=== PATIENT | female | born 1990 | race Caucasian/White ===

== ENCOUNTER 2016-10-20 09:36 | Emergency (ER) | payer OTHER ==
[2016-10-20 09:47] VITALS: BP 122/68
--- NOTE | 2016-10-20 09:59 | UC ---
Throat Pain/Nasal Dimas HPI - HPI Summary HPI Summary: compalint of aore throat that started 3 days ago has felt fever and chills for 2 days intermittent headache front of head intermittent nausea denies V/D denies nasal congestion and cough hasn't neede inhaler during this illness taking dayquil and nyquil with some relief of symptoms - History of Current Complaint Chief Complaint: UCGeneralIllness Stated Complaint: SORE THROAT, ACHES Hx Obtained From: Patient Hx Last Menstrual Period: 10/16/16 - Allergies/Home Medications Allergies/Adverse Reactions: Allergies Allergy/AdvReac Type Severity Reaction Status Date / Time No Known Allergies Allergy Verified 10/20/16 09:43 PMH/Surg Hx/FS Hx/Imm Hx Previously Healthy: Yes Endocrine History Of: Denies: Diabetes, Thyroid Disease Cardiovascular History Of: Denies: Cardiac Disorders, Hypertension, Pacemaker/ICD Respiratory History Of: Reports: Asthma Denies: COPD GI/ History Of: Denies: Ulcer, Renal Disease - Surgical History Surgical History: None - Family History Known Family History: Positive: Hypertension - Social History Occupation: Employed Full-time Lives: With Family Alcohol Use: Occasionally Substance Use Type: None Smoking Status (MU): Former Smoker Type: Cigarettes When Did the Patient Quit Smoking/Using Tobacco: 4 1/2 YRS AGO Review of Systems Constitutional: Chills Skin: Negative Eyes: Negative ENT: Sore Throat Respiratory: Negative Cardiovascular: Negative Gastrointestinal: Negative Genitourinary: Negative Motor: Negative Neurovascular: Negative Musculoskeletal: Negative Neurological: Negative Psychological: Negative All Other Systems Reviewed And Are Negative: Yes Physical Exam Triage Information Reviewed: Yes Appearance: No Pain Distress, Well-Nourished Vital Signs: Initial Vital Signs Temp 99.1 F 10/20/16 09:44 Pulse 75 10/20/16 09:44 Resp 18 10/20/16 09:44 BP 122/68 10/20/16 09:44 Pulse Ox 100 10/20/16 09:44 Vital Signs Reviewed: Yes Eyes: Positive: Conjunctiva Clear ENT: Positive: Pharyngeal erythema, TMs normal. Negative: Nasal congestion, TM red, Tonsillar swelling, Tonsillar exudate Neck: Positive: No Lymphadenopathy Respiratory: Positive: Lungs clear, Normal breath sounds, No respiratory distress Cardiovascular: Positive: RRR, No Murmur, Pulses Normal Abdomen Description: Positive: Nontender, Soft Bowel Sounds: Positive: Present Musculoskeletal: Positive: No Edema Neurological: Positive: Alert Psychological Exam: Normal Skin Exam: Normal Throat Pain/Nasal Course/Dx - Course Course Of Treatment: exam completed. neagitve strep. supportive treatment only - Differential Dx/Diagnosis Differential Diagnosis/HQI/PQRI: Pharyngitis, URI Provider Diagnoses: pharyngitis Discharge - Discharge Plan Condition: Stable Disposition: HOME Patient Education Materials: Pharyngitis (ED) Referrals: Yashira Yeung MD [Primary Care Provider] - Additional Instructions: Increase fluids and rest Take acetaminophen for fever or pain Please review your discharge instructions. If your symptoms do not improve please call your primary care provider or return to urgent care.
== END 2016-10-20 10:30 | disposition home or self-care (01) ==
LOC: UCEAST 09:36
DX: J02.9 Acute pharyngitis, unspecified (principal); Z87.891 Personal history of nicotine dependence; Z87.09 Personal history of other diseases of the respiratory system
CPT/HCPCS: 87651; 99211; G0463

== ENCOUNTER → 2017-06-30 05:50 | Day surgery (SDC) | payer BC, OTHER ==
--- NOTE | 2017-06-22 22:26 | HP ---
PREOPERATIVE HISTORY AND PHYSICAL: DATE OF SURGERY: 06/30/17 DATE OF OFFICE VISIT: 06/22/17 ATTENDING SURGEON: Eric Staton MD* (dictated by JUAN C Vallejo). PROCEDURES: Left hip arthroscopic labral repair, osteoplasty. CHIEF COMPLAINT: Left hip pain. HISTORY OF PRESENT ILLNESS: Donna is a 26-year-old female who presents to the clinic for ongoing left hip pain due to a labral tear. She has failed conservative measures to include an intraarticular injection and has therefore agreed to undergo left hip arthroscopic labral repair and osteoplasty with Dr. Staton on 06/30/17. PAST MEDICAL HISTORY: Asthma and migraine. PAST SURGICAL HISTORY: Denies prior surgeries. MEDICATIONS: 1. Fish oil 1000 mg 1 by mouth every day. 2. Excedrin Migraine 250/250/65 mg take as needed for headache. ALLERGIES: No known drug allergies. FAMILY HISTORY: Denies pertinent family history. SOCIAL HISTORY: She works as a construction equipment mechanic. She denies tobacco use. She reports occasional alcohol use. She denies illicit drug use. REVIEW OF SYSTEMS: A 14-point review of systems was reviewed with the patient. Positive for current complaint, otherwise negative. Denies fevers, chills. Denies chest pain or shortness of breath. Denies history of bleeding disorder. Denies history of DVT or PE. PHYSICAL EXAMINATION GENERAL: Well-developed, well-nourished 26-year-old female, in no acute distress. Alert and oriented x3. Appropriate mood and affect. VITALS: Height 60, weight 126, blood pressure 116/70, respiratory rate 18, temperature 97.9, BMI 24.6. HEENT: Normocephalic and atraumatic. PERRLA. Throat clear. NECK: Supple. PULMONARY: Lungs are clear to auscultation bilaterally. No wheezing, rhonchi, or rales. CARDIO: Regular rate and rhythm. S1 and S2. No murmurs, gallops, rubs. No edema. ABDOMEN: Positive bowel sounds. Soft and nontender. NEURO: Alert and oriented x3. Cranial nerves grossly intact. Sensation is intact to light touch. MUSCULOSKELETAL: Left lower extremity: Skin is intact. No warmth or erythema. Nontender to palpation. Flexion to 130 degrees with some discomfort. Positive FADIR. Negative DEMETRIUS. Internal rotation to 25 degrees, external rotation to 40. No pain on passive abduction. No pain with logroll. +2 posterior tibial pulse. Sensation is intact to light touch distally. STUDIES: Left hip arthrogram revealed labral tear, small cam deformity, small pincer deformity. IMPRESSION: Left hip labral tear. PLAN: The patient is scheduled to undergo a left hip arthroscopic labral repair and osteoplasty with Dr. Staton on 06/30/17. She will return to the office in 10 to 14 days postop for followup and suture removal. Percocet and OxyContin will be used for postop pain management. Ambien for sleep and naproxen to prevent heterotopic ossification. The patient was a given script for physical therapy and was instructed to be in physical therapy the day after surgery. JUAN C VALLEJO [id number]/[facility] #: [id number] NEGAR
[~2017-06-30 05:50] MED LIST: Buffered Lidocaine 0.9% SYRIN* 5 ML/SYR SYRINGE INTRADERM ONE; Buffered Lidocaine 0.9% SYRIN* 5 ML/SYR SYRINGE ONE; Bupivacaine 0.25% SDV* 30 ML ONE; Cisatracurium* 2 MG/ML MDV 5 ML ONE; Dexamethasone IV* 4 MG/ML 1 ML (4 MG) ONE; DiMENhydriNATE IV* 50 MG/ML VIAL IV PUSH PRN; EPHEDrine (Pressors)* 50 MG/ML VIAL ONE; Famotidine IV* 10 MG/ML 2 ML (20 mg) IV ONE; Famotidine IV* 10 MG/ML 2 ML (20 mg) ONE; HYDROmorphone INJ* 1 MG/ML CARPUJECT SYRINGE IV PRN; HYDROmorphone INJ* 1 MG/ML CARPUJECT SYRINGE ONE; KETAMINE HCL* 50 MG/ML 10 ML VIAL ONE; Ketorolac INJ* 30 MG/ML 1 ML VIAL ONE; Lidocaine 2% PF * 5 ML VIAL ONE; Metoclopramide TAB* 10 MG ONE; Metoclopramide TAB* 10 MG PO ONE; Midazolam* 1 MG/ML 5 ML VIAL (5 MG) ONE; Ondansetron INJ* 2 MG/ML VIAL IV PRN; Ondansetron INJ* 2 MG/ML VIAL ONE; Propofol* 10 MG/ML 20 ML BTL IV PUSH ONE; Scopolamine 1.5 mg* PATCH TRANSDERM PRN; ceFAZolin 2 GM PREMIX (*) 50 ML IVPB ONE; fentaNYL* 50 MCG/ML 2 ML VIAL (100 MCG VIAL) IV PRN; fentaNYL* 50 MCG/ML 2 ML VIAL (100 MCG VIAL) ONE; oxyCODONE/Acetamin 5/325 MG* TAB ONE
--- NOTE | 2017-06-30 10:44 | RAD ---
INDICATION: Fluoroscopy was provided for left hip arthroscopy COMPARISONS: None relevant TECHNIQUE: Fluoroscopy was provided for left hip arthroscopy. Total fluoroscopy time is: 80.2 seconds FINDINGS: Spot images demonstrate a small scope overlying the left hip. IMPRESSION: FLUOROSCOPY WAS PROVIDED FOR LEFT HIP ARTHROSCOPY CPT II Codes: 6045F
[2017-06-30 11:49] VITALS: BP 114/68
--- NOTE | 2017-06-30 17:46 | OP ---
DATE OF OPERATION: 06/30/17 [facility] DATE OF : [birth year] SURGEON: Eric Staton MD GENERAL DENTIST/OWNER: JUAN C Smith. An high school assistant football coach was needed for the entirety of the case to help with positioning, retraction, and utilized throughout all portions of the case. ANESTHESIOLOGIST: Rod Jose MD ANESTHESIA: General. PRE-OP DIAGNOSIS: Left hip labral tear with mixed cam and pincer morphology. POST-OP DIAGNOSIS: Left hip labral tear with mixed cam and pincer morphology. OPERATIVE PROCEDURE: Left hip arthroscopy with labral repair and cam osteoplasty. INDICATIONS: Donna Dominguez is a 26-year-old female with 2-1/2-year history of left hip pain. She was very active and she has two areas of pain, which is one in the piriformis and one is along the hip itself. She has mixed cam and pincer morphology with labral tear. She has failed conservative management. She has elected to proceed with operative treatment. She did respond to an injection, although it did not take away all of her pain and she has some piriformis-type symptoms. Risks included but are not limited to bleeding, infection, damage to nerves, vessels, surrounding structures, wound nonhealing, persistent pain, need for further surgery, scarring, stiffness, incomplete relief of symptoms, heterotopic ossification, traction injuries, risk of DVT, risk of anesthesia. She has elected to proceed. COMPLICATIONS: None. ESTIMATED BLOOD LOSS: Minimal. IMPLANTS USED: Two Mclaughlin and Nephew Q-FIX anchors. OPERATIVE FINDINGS: Traction provided good access to the hip joint without evidence of hyperlaxity. The arthroscopic exam showed a large labral tear from the 10 o'clock to 2 o'clock position with some subluxation to the labrum and there was a wave sign. The labrum was very good quality. Unstable labral tear was able to be repaired. The wave sign involving the cartilage delamination at the division of labral tear had only minimal amount of damage to the acetabular cartilage; otherwise, the cartilage of the femoral head was intact as well as the acetabulum. There was evidence of capsular irritation and thickening. DESCRIPTION OF PROCEDURE: The patient was greeted in the preoperative area by the attending surgeon. Correct extremity was marked and consent was confirmed. The patient was then brought back to the operating suite. She was placed in supine position on the operating table. She then underwent general anesthesia and endotracheal intubation after which she was positioned appropriately in the Mclaughlin and Nephew hip distraction system with a well-padded perineal post. Both the operative and nonoperative extremities were placed in well-padded boots. Traction was placed first on the nonoperative extremity and then at the operative extremity in the dynamic leg nuñez to keep traction along the dome of the pelvis and keep the extremity balanced. The left arm was draped over the chest and a lead was placed around the patient to prevent exposure to radiation. The C-arm was confirmed. The operative leg was placed in slight gentle flexion, internal rotation with adduction of the leg to bring the femoral neck parallel to the floor. At this point, a miniature surgical pause was done indicating side, site, and procedure, then gross traction was applied to the operative extremity. Under sterile condition, an 18-gauge spinal needle was used to access the joint to break the acetabular seal. Once this was confirmed and there was an air arthrogram, fine traction was applied to the joint and it was distracted to about 1.5 cm. This was visualized and confirmed using large C-arm fluoroscopy and the traction was then released. The hip was then prepped and draped in the usual sterile fashion beginning with chlorhexidine soap, scrub, and alcohol wipe, and a final prep with ChloraPrep. After appropriate surgical pause indicating side, site, procedure, and administration of antibiotics, traction was brought back up to allow for about 1.5 cm of distraction. The anterior peritrochanteric portal was then accessed using a long spinal needle, which was confirmed fluoroscopically. After this was done, a nitinol wire was used to help facilitate a cannula and atraumatic access into the hip. Once the cannula was placed, a 70-degree scope was used to identify and visualize the hip including femoral head, which had no significant arthritic changes as well as the acetabulum. With arthroscopic and fluoroscopic guidance, the second anterolateral portal was made with needle localization in a similar fashion to allow for atraumatic access. The scope was then repositioned in the anterior portal to make sure that there was no penetration from the original portals. The irrigation pump was set at 40 mmHg as to provide constant pressure throughout the entirety of the case. Once the positions were confirmed, a capsulotomy was then done of the capsule using a [place] blade. Posterior compartment synovectomy was carried out using a full radius curved shaver as well as electrocautery device to maintain hemostasis. This eliminates synovial fold and allowed access to the joint capsule. The capsular reflection was then cleared back to the rim of acetabulum to expose the rim for trimming. At this point, it was determined that the labrum was in good condition and was able to be repaired. This was gently released using the [place] blade. This exposed the acetabular rim. The 5.5 round bur was then used to do an osteoplasty to remove the crossover sign that was determined preoperatively. This was based on preoperative template. This also was used to remove some AIIS impingement all the way to the subspine region. The bur was also taken anteriorly to remove the excess pincer deformity more anteriorly. Once this was complete, a Mclaughlin and NephCloudcam Q-Fix guide was then used place an anchor first superolaterally. This was confirmed under fluoroscopic examination to make sure that there was no penetration into the hip and confirmed arthroscopically. The anchor was placed to get excellent purchase and then passed through the labrum in simple fashion. This helped to restore the normal labral mechanics. The second anchor was placed more anteriorly and again passed in a simple fashion. This allowed to restore the labrum back to more normal kinematics. Once the intraarticular joint work was done, the traction was removed and this was confirmed by C-arm as well as arthroscopy with the head was reduced into the joint and there was concentric reduction. Femoral head and neck were then visualized to expose a small cam lesion. Preoperative templating was then used as a guide and femoral neck osteoplasty was carried out using a 5.5 round bur. The resection was carried out from superior lateral to inferior medial and confirmed using the C-arm to make sure elimination of femoral-sided impingement. The femoral head and neck angle was then normalized. Care was taken to prevent iatrogenic injury to the lateral vessels. Dynamic testing was done under direct visualization. C-arm was used to ensure that all bony impingement was removed. The hip was taken through range of motion including extension, flexion, external, and internal rotation as well as neutral rotation. Final dynamic exam was done to make sure the cam lesion had been eliminated. At this point, meticulous hemostasis was obtained. The spinal needle was inserted into the joint under arthroscopic visualization. 3 cc of injectable saline and Toradol were injected into the hip joint. The skin incisions were copiously irrigated and closed in layered fashion with 2-0 Vicryl and 3-0 nylon. Portals were injected with 0.25% Marcaine for postoperative pain control. Sterile dressings were applied along with Cryo/Cuff and thigh-high BEAU stockings in both extremities. She was awoken from anesthesia and transferred to PACU in stable condition. POSTOPERATIVE PLAN: She will be discharged home the same day. She was given prescriptions for Naprosyn 500 mg b.i.d., oxycodone ER 10 mg b.i.d. for 5 days, Percocet as well as Ambien 5 mg p.o. daily for 5 days. DVT prophylaxis was considered, but deferred due to no previous personal or family history. She will wear these stockings for 2 weeks. She will be not allowed to flex her hip past 90 degrees for the first 2 weeks and 50% partial weightbearing using crutches for 2 weeks postop. She will start therapy on postop day #1. We will see her back in 10 to 14 days and she will need x-rays of her hip including a Hirsch lateral at 45 degrees. [id number]/[facility] #: [id number] MTDD
== END | disposition home or self-care (01) ==
LOC: OR 05:50
PROVIDERS: ATTEND Orthopaedic Surgery
DX: S73.192A Other sprain of left hip, initial encounter (principal); M25.852 Other specified joint disorders, left hip; X58.XXXA Exposure to other specified factors, initial encounter; J45.909 Unspecified asthma, uncomplicated; G43.909 Migraine, unspecified, not intractable, without status migrainosus; Z87.891 Personal history of nicotine dependence
CPT/HCPCS: 76000; 81025; A9270-GY; C1713; J0690; J1100; J1170; J1885; J2250; J2405; J2704; J3010

== ENCOUNTER 2017-07-18 16:52 | Emergency (ER) | payer BC ==
[2017-07-18 16:58] VITALS: BP 120/68
[2017-07-18] MEDS ORDERED: Sulfamethox/Trimethoprim DS 800/160* TAB PO ONE (17:10)
--- NOTE | 2017-07-18 17:10 | UC ---
Skin Complaint HPI - HPI Summary HPI Summary: Painful lump on R jaw line. Has been picking at an area occasionally for several days, area has intermittently been "pouring pus". No fever, moderate pain. Had recent L hip surgery [facility]. - History of Current Complaint Chief Complaint: UCGI Time Seen by Provider: 07/18/17 16:58 Stated Complaint: SORE MOUTH Hx Obtained From: Patient Hx Last Menstrual Period: 07/01/17 ?: No Onset/Duration: Gradual Onset, Lasting Days Skin Exposure Onset/Duration: Days Ago Timing: Constant Onset Severity: Mild Current Severity: Moderate Location: Discrete Character: Swelling, Pain, Redness Aggravating Factor(s): Touch Associated Signs & Symptoms: Positive: Drainage - Allergy/Home Medications Allergies/Adverse Reactions: Allergies Allergy/AdvReac Type Severity Reaction Status Date / Time No Known Allergies Allergy Verified 06/30/17 06:08 Home Medications: Home Medications Ifzhkhc-Rwjwcodmmgbym-Lmphdzsw [Excedrin Migraine 250-250-65 mg] 1 tab PO [History] Naproxen [Naprosyn 500 mg] 500 mg PO BID PRN 07/18/17 [History Confirmed ] Review of Systems Constitutional: Negative Skin: Other - swollen, erythematous area with draining center on R jaw line Eyes: Negative ENT: Negative Respiratory: Negative Cardiovascular: Negative Gastrointestinal: Negative Genitourinary: Negative Motor: Negative Neurovascular: Negative Musculoskeletal: Negative Neurological: Negative Psychological: Negative Is Patient Immunocompromised?: No All Other Systems Reviewed And Are Negative: Yes PMH/Surg Hx/FS Hx/Imm Hx Previously Healthy: Yes - Surgical History Surgical History: Yes Surgery Procedure, Year, and Place: lt hip repair - Family History Known Family History: Positive: Hypertension - Social History Lives: With Family Alcohol Use: Occasionally Substance Use Type: None Smoking Status (MU): Former Smoker Type: Cigarettes Amount Used/How Often: 1 PPD X 5 YEARS Have You Smoked in the Last Year: No When Did the Patient Quit Smoking/Using Tobacco: 2011 Physical Exam Triage Information Reviewed: Yes Appearance: Well-Appearing, Pain Distress - mild Vital Signs: Initial Vital Signs Temp 99.8 F 07/18/17 16:55 Pulse 94 07/18/17 16:55 Resp 18 07/18/17 16:55 BP 120/68 07/18/17 16:55 Pulse Ox 100 07/18/17 16:55 Vital Signs Reviewed: Yes Eye Exam: Normal, Other - PERRL Eyes: Positive: Conjunctiva Clear ENT Exam: Normal ENT: Positive: Normal ENT inspection, Hearing grossly normal, Pharynx normal, TMs normal Dental Exam: Normal Neck exam: Normal Respiratory Exam: Normal Respiratory: Positive: Chest non-tender, Lungs clear, Normal breath sounds, No respiratory distress, No accessory muscle use Cardiovascular Exam: Normal Cardiovascular: Positive: RRR, No Murmur Musculoskeletal Exam: Normal Neurological Exam: Normal Neurological: Positive: Alert Psychological Exam: Normal Skin Exam: Other - draining abscess with cellulitis on L angle of jaw, able to express large amount of pus on exam, culture obtained. Course/Dx - Diagnoses Provider Diagnoses: L facial abscess (no procedure). L facial cellulitis Discharge - Discharge Plan Condition: Stable Disposition: HOME
--- NOTE | 2017-07-20 17:22 | UC ---
Progress - Progress Note Progress Note: no change.
== END 2017-07-18 17:27 | disposition home or self-care (01) ==
LOC: UCEAST 16:52
DX: L03.211 Cellulitis of face (principal); B95.62 Methicillin resistant Staphylococcus aureus infection as the cause of diseases classified elsewhere
CPT/HCPCS: 87070; 87077; 87186; 87205; 87640; 87641; 99212; A9270-GY; G0463

== ENCOUNTER 2018-02-28 14:01 | Emergency (ER) | payer OTHER ==
--- NOTE | 2018-02-28 14:14 | UC ---
Throat Pain/Nasal Dimas HPI - HPI Summary HPI Summary: 27 yo female presents with sore throat for the last 2 days. She tells me that her son was recently diagnosed with strep and she is concerned that she might have it. Has not tried anything OTC. She is currently . Denies fever, chills, cough, SOB, chest pain, abdominal pain, n/v, or vaginal bleeding. - History of Current Complaint Chief Complaint: UCGeneralIllness Stated Complaint: THROAT COMPLAINT Time Seen by Provider: 02/28/18 14:14 Hx Obtained From: Patient Hx Last Menstrual Period: 08/30/17 ?: Yes Onset/Duration: Sudden Onset Severity: Mild Pain Intensity: 2 Pain Scale Used: 0-10 Numeric - Allergies/Home Medications Allergies/Adverse Reactions: Allergies Allergy/AdvReac Type Severity Reaction Status Date / Time No Known Allergies Allergy Verified 06/30/17 06:08 PMH/Surg Hx/FS Hx/Imm Hx - Additional Past Medical History Additional PMH: None Previously Healthy: Yes - Surgical History Surgical History: Yes Surgery Procedure, Year, and Place: lt hip repair - Family History Known Family History: Positive: Hypertension - Social History Occupation: Employed Full-time Lives: With Family Alcohol Use: Occasionally Substance Use Type: None Smoking Status (MU): Former Smoker Type: Cigarettes Amount Used/How Often: 1 PPD X 5 YEARS Have You Smoked in the Last Year: No When Did the Patient Quit Smoking/Using Tobacco: 2011 Review of Systems Constitutional: Negative Skin: Negative Eyes: Negative ENT: Sore Throat Respiratory: Negative Cardiovascular: Negative Gastrointestinal: Negative Neurovascular: Negative Musculoskeletal: Negative Neurological: Negative Psychological: Negative All Other Systems Reviewed And Are Negative: Yes Physical Exam - Summary Physical Exam Summary: GENERAL: NAD. WDWN. SKIN: No rashes, sores, lesions, or open wounds. HEENT: Head: AT/NC Eyes: EOM intact. Conjunctiva clear without inflammation or discharge. Ears: Hearing grossly normal. TMs intact, no bulging, erythema, or edema. Nose: Nasal mucosa pink and moist. NTTP maxillary and frontal sinus. Throat: Posterior oropharynx without exudates, erythema, or tonsillar enlargement. Uvula midline. NECK: Supple. Nontender. No lymphadenopathy. CHEST: CTAB. No r/r/w. No accessory muscle use. Breathing comfortably and in no distress. CV: RRR. Without m/r/g. Pulses intact. Brisk cap refill. NEURO: Alert. CN II-XII grossly intact. PSYCH: Age appropriate behavior. Triage Information Reviewed: Yes Vital Signs: Initial Vital Signs Temp 98 F 02/28/18 14:05 Pulse 97 02/28/18 14:05 Resp 17 02/28/18 14:05 BP 92/61 02/28/18 14:05 Pulse Ox 100 02/28/18 14:05 Throat Pain/Nasal Course/Dx - Course Course Of Treatment: POC strep negative. Suspect viral pharyngitis and advised tylenol for pain and throat gargles. F/u prn - Differential Dx/Diagnosis Provider Diagnoses: Pharyngitis Discharge - Sign-Out/Discharge Documenting (check all that apply): Discharge/Admit/Transfer - Discharge Plan Condition: Stable Disposition: HOME Patient Education Materials: Pharyngitis (ED) Referrals: Yashira Yeung MD [Primary Care Provider] - Additional Instructions: If you develop a fever, shortness of breath, chest pain, new or worsening symptoms - please call your PCP or go to the ED. - Billing Disposition and Condition Condition: STABLE Disposition: Home
[2018-02-28 15:01] VITALS: BP 125/75
== END 2018-02-28 14:54 | disposition home or self-care (01) ==
LOC: UCEAST 14:01
DX: J02.9 Acute pharyngitis, unspecified (principal); Z87.891 Personal history of nicotine dependence
CPT/HCPCS: 87651; 99211; G0463

== ENCOUNTER 2018-06-09 15:53 | Inpatient (IN) | payer OTHER ==
--- NOTE | 2018-06-09 16:32 | HP ---
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 Depression/anxiety--no meds at present Past Surgical History Comment: L hip arthroscopy--repair of labral tear (06/2017) Pertinent Family History: Non-Contributory - Antepartal Records Antepartal Records: Reviewed, Uncomplicated Review of Systems Constitutional: Uncomfortable CV Complaint: No Respiratory: Shortness of Breath: No Gastrointestinal: No Nausea/Vomiting, Normal Bowel Movement Genitourinary: No Leaking Fluid Musculoskeletal: Contractions Neurological: No Headache, No Visual Changes Movement: Normal Exam Allergies/Adverse Reactions: Allergies No Known Allergies Allergy (Verified 06/30/17 06:08) - Measurements Height: 5 ft 0.5 in Weight: 171 lb Body Mass Index (BMI): 32.8 Pre- Weight: 127 lb - Exam Breast: - - soft, no masses Extremities: Edema - trace Heart: Normal Rhythm/Heart Sounds HEENT: No Significant Findings Lungs: Clear Bilaterally Reflexes: DTR 2+ Thyroid: No Thyromegaly - Ultrasound/Biophysical Profile Ultrasound Status: Not Done Targeted Exam Findings Estimated Weight: 7 lbs Cervical Exam: 4cm Effacement: 90% Station: -1 Presenting Part: Vertex Bleeding/Discharge: None EFM Findings - External Monitor Findings Baseline Heart Rate: 140 External Monitor Findings: Accelerations Present, No Pattern of Variable or Late Decelerations, Variability Moderate External Monitor Findings Comment: category 1 Contractions: Regular - q 3-5, Moderate, 45-90 Seconds Assessment/Plan - Assessment 40 w 1 day in labor. Wants epidural when more uncomfortable - Plan Plan: Admit - Anticipate Vaginal Delivery - Date/Time of Admission Date of Admission: 06/09/18 Time of Admission: 16:30
[2018-06-09 19:43] LABS: ABS Basophils 0 10^3/ul (0-0.2); ABS Eosinophils 0.1 10^3/ul (0-0.6); ABS Lymphocytes 1.7 10^3/ul (1.0-4.8); ABS Neutrophils 11.9 10^3/ul (1.5-7.7); ABS Nucleated RBC 0 10^3/ul; Eosinophil % 0.6 % (0-6); Hematocrit 38 % (35-47); Hemoglobin 12.8 g/dl (12.0-16.0); Lymphocyte % 11.6 % (25-47); Mean Corpuscular HGB Conc 33 g/dl (31-36); Mean Corpuscular Hemoglobin 29 pg (27-31); Mean Corpuscular Volume 86 fL (80-97); Mean Platelet Volume 8.1 um3 (7.4-10.4); Nucleated Red Blood Cells % 0; Platelet Count 135 10^3/ul (150-450); Red Blood Count 4.47 10^6/ul (4.00-5.40); Red Cell Distribution Width 16 % (10.5-15); White Blood Count 14.7 10^3/ul (3.5-10.8)
[2018-06-09] MEDS ORDERED: OBEPIDURAL* 250 ML EPIDURAL ONE (20:24)
[2018-06-09] MEDS ORDERED: Phenylephrine IV* 40 MCG/ML 10 ML SYRINGE IV PUSH PRN ×2 (21:12)
[2018-06-09] MEDS ORDERED: EPHEDrine (Pressors)* 50 MG/ML VIAL IV PUSH PRN ×2 (21:12)
[2018-06-09] MEDS ORDERED: Sodium Citrate/Citric Acid* 15 ML UDC PO PRN (21:12)
[2018-06-09] MEDS ORDERED: Famotidine TAB* 20 MG PO PRN (21:12)
[2018-06-09] MEDS ORDERED: OBEPIDURAL* 250 ML EPIDURAL SCH (22:00)
[2018-06-09] MEDS ORDERED: Oxytocin in LR* 20 UNITS/1,000 ML BAG IVPB ONE (23:19)
[2018-06-09] MEDS ORDERED: Oxytocin in LR* 20 UNITS/1,000 ML BAG IVPB SCH (23:45)
[2018-06-09] MEDS ORDERED: Dibucaine 1% 28.35 GM TUBE PR PRN (23:46)
[2018-06-09] MEDS ORDERED: Glycerin ADULT SUPP PR PRN (23:46)
[2018-06-09] MEDS ORDERED: Witch Hazel PAD* JAR TOPICAL PRN (23:46)
--- NOTE | 2018-06-10 00:51 | PROCNOTE ---
[facility] OB: Delivery Note - Delivery A Date of : 06/09/18 Time of : 23:20 [place] Sex: Female Score 1 Minute: 9 Score 5 Minutes: 9 Gestational Age in Weeks and Days at Delivery: 40 Weeks and 1 Days Delivery Method: Spontaneous Vaginal Labor: Spontaneous Amniotic Fluid: Clear Estimated Blood Loss: 200 Anesthesia/Analgesia: CEI for Labor Anesthesia Comment: Dr. Salazar Delivered By: Betsy Connors - Nursery Level of Nursery: Regular/Bedside - Perineum Perineal Injury: Vaginal Laceration Perineal Injury Comment: L sidewall Perineal Repair: By Delivering Practioner - Additional Delivery Notes Additional Delivery Notes: SVB LFC, OA over Lvaginal lac. Infant pink with stimulation, vigorous. Placenta Ramakrishna. FF with massage. IV with pitocin running. Repair of laceration 1ith 3- 4 and 4-0 ccg under 1% lidocaine local. Mother and baby stable condition
[2018-06-10] MEDS: Docusate CAP* 100 MG PO SCH ×3 (08:15→20:37)
[2018-06-10] MEDS: Ibuprofen TAB* 600 MG PO PRN ×3 (08:15→20:37)
[2018-06-10 08:30] LABS: Hematocrit 36 % (35-47); Hemoglobin 12.1 g/dl (12.0-16.0); Mean Corpuscular HGB Conc 34 g/dl (31-36); Mean Corpuscular Hemoglobin 29 pg (27-31); Mean Corpuscular Volume 86 fL (80-97); Mean Platelet Volume 7.9 um3 (7.4-10.4); Platelet Count 125 10^3/ul (150-450); Red Blood Count 4.22 10^6/ul (4.00-5.40); Red Cell Distribution Width 16 % (10.5-15); White Blood Count 16.5 10^3/ul (3.5-10.8)
[2018-06-10] MEDS ORDERED: Ferrous Gluconate TAB* 324 MG TAB PO SCH (09:00)
[2018-06-10] MEDS: Acetaminophen TAB* 325 MG PO PRN ×2 (10:29→18:05)
[2018-06-11] MEDS: Ibuprofen TAB* 600 MG PO PRN (06:18)
[2018-06-11] MEDS: Acetaminophen TAB* 325 MG PO PRN (08:23)
[2018-06-11] MEDS: Docusate CAP* 100 MG PO SCH (08:23)
[2018-06-11 11:29] VITALS: BP 108/68
== END 2018-06-11 12:52 | disposition home or self-care (01) | DRG 560 ==
LOC: MCHOBOUT 15:53 → MCHOB 16:24
PROVIDERS: ADMIT Midwife; ATTEND Midwife
PROC: 10E0XZZ Delivery of Products of Conception, External Approach (ICD-10-PCS; principal; 2018-06-09)
PROC: 0KQM0ZZ Repair Perineum Muscle, Open Approach (ICD-10-PCS; 2018-06-09)
PROC: 10907ZC Drainage of Amniotic Fluid, Therapeutic from Products of Conception, Via Natural or Artificial Opening (ICD-10-PCS; 2018-06-09)
DX: O48.0 Post-term pregnancy (principal); O71.4 Obstetric high vaginal laceration alone; Z3A.40 40 weeks gestation of pregnancy; O99.344 Other mental disorders complicating childbirth; F41.8 Other specified anxiety disorders; Z37.0 Single live birth
CPT/HCPCS: 36415; 85025; 85027; 86850; 86900; 86901; 90686; A9270-GY

== ENCOUNTER 2019-02-23 19:59 | Emergency (ER) | payer BC, OTHER ==
[2019-02-23 20:29] VITALS: BP 112/62
--- NOTE | 2019-02-23 20:45 | UC ---
Throat Pain/Nasal Dimas HPI - HPI Summary HPI Summary: 28-year-old female presents with 2 day history of sore throat. States today she started with a hoarse voice as well. Also noted some bilateral ear fullness. Denies fever, chills, nasal congestion, runny nose, dysphagia, shortness of breath, cough, abdominal pain, nausea, or vomiting. Patient is presently breast-feeding. - History of Current Complaint Chief Complaint: UCGeneralIllness Stated Complaint: SORE THROAT Time Seen by Provider: 02/23/19 20:25 Hx Obtained From: Patient Hx Last Menstrual Period: Aug 2018 Pain Intensity: 5 - Allergies/Home Medications Allergies/Adverse Reactions: Allergies Allergy/AdvReac Type Severity Reaction Status Date / Time No Known Allergies Allergy Verified 02/23/19 20:29 Home Medications: Home Medications Acetaminophen TAB* [Tylenol TAB*] 500 mg PO Q4H PRN 02/23/19 [History Confirmed 02/23/19] PMH/Surg Hx/FS Hx/Imm Hx Previously Healthy: Yes - Denies significant PMH - Surgical History Surgical History: Yes Surgery Procedure, Year, and Place: lt hip repair - Family History Known Family History: Positive: Hypertension - Social History Occupation: Employed Full-time Lives: With Family Alcohol Use: None Substance Use Type: None Smoking Status (MU): Former Smoker Type: Cigarettes Amount Used/How Often: 1 PPD X 5 YEARS Have You Smoked in the Last Year: No When Did the Patient Quit Smoking/Using Tobacco: 2011 - Immunization History Most Recent Influenza Vaccination: 06/11/18 Review of Systems All Other Systems Reviewed And Are Negative: Yes Constitutional: Positive: Chills. Negative: Fever Skin: Negative: Rash Eyes: Negative: Drainage, Eye Redness ENT: Positive: Sore Throat, Ear Ache. Negative: Nasal Discharge, Sinus Congestion, Sinus Pain/Tenderness Respiratory: Negative: Shortness Of Breath, Cough Cardiovascular: Negative: Palpitations, Chest Pain Gastrointestinal: Negative: Abdominal Pain, Vomiting, Diarrhea, Nausea Genitourinary: Positive: Negative Musculoskeletal: Positive: Negative Neurological: Positive: Negative Is Patient Immunocompromised?: No Physical Exam - Summary Physical Exam Summary: GENERAL APPEARANCE: Well developed, well nourished, alert and cooperative, and appears to be in no acute distress. EYES: Conjunctiva clear. No drainage. EARS: External auditory canals and tympanic membranes clear, hearing grossly intact. NOSE: No nasal discharge. THROAT: Mild pharygeal erythema. No tonsilar inflammation, swelling, exudate, or lesions. Uvula midline. Oral cavity normal. Teeth and gingiva in good general condition. NECK: Neck supple, non-tender without lymphadenopathy. CARDIAC: Normal S1 and S2. No S3, S4 or murmurs. Rhythm is regular. There is no peripheral edema, cyanosis or pallor. Extremities are warm and well perfused. Capillary refill is less than 2 seconds. Peripheral pulses intact. LUNGS: Clear to auscultation without rales, rhonchi, wheezing or diminished breath sounds. ABDOMEN: Positive bowel sounds. Soft, nondistended, nontender. No guarding or rebound. No masses or hepatosplenomegally. MUSKULOSKELETAL: ROM intact to all extremities. No joint erythema or tenderness. Normal muscular development. Normal gait. SKIN: Skin normal color, texture and turgor with no lesions or eruptions. Triage Information Reviewed: Yes Vital Signs: Initial Vital Signs Temp 99 F 02/23/19 20:23 Pulse 94 02/23/19 20:23 Resp 16 02/23/19 20:23 BP 112/62 02/23/19 20:23 Pulse Ox 99 02/23/19 20:23 Vital Signs Reviewed: Yes Throat Pain/Nasal Course/Dx - Course Course Of Treatment: 28-year-old female presents with 2 day history of sore throat. States today she started with a hoarse voice as well. Also noted some bilateral ear fullness. Denies fever, chills, nasal congestion, runny nose, dysphagia, shortness of breath, cough, abdominal pain, nausea, or vomiting. Patient is presently breast-feeding. Afebrile. Vital signs stable. Patient had some mild pharyngeal erythema without tonsillar swelling, exudate, or cervical lymphadenopathy. Remainder of exam was unremarkable. Rapid strep test was negative. Review the results with the patient. Discussed with the patient that her symptoms are likely from a viral pharyngitis and I'm recommending symptomatic treatment at this time. She is to return here or follow up with primary care provider in 5-7 days if symptoms are not improving. Anticipatory guidance and warning symptoms are reviewed with the patient. Verbalizes understanding and agrees with plan of care. - Differential Dx/Diagnosis Differential Diagnosis/HQI/PQRI: Laryngitis, Mononucleosis, Otitis Media, Pharyngitis, Sinusitis, Tonsillitis, URI Provider Diagnosis: Viral pharyngitis Discharge - Sign-Out/Discharge Documenting (check all that apply): Patient Departure All imaging exams completed and their final reports reviewed: No Studies - Discharge Plan Condition: Stable Disposition: HOME Patient Education Materials: Pharyngitis (ED) Referrals: Yashira Yeung MD [Primary Care Provider] - 5 Days Additional Instructions: Your rapid strep test in the clinic today was negative. Your symptoms are likely from a viral infection. Viral infections do not respond to antibiotics and are limited to the treatment of symptoms. Viral infections typically run their course in 7-10 days. Drink plenty of fluids to avoid dehydration especially if you are running any fever. Use salt water gargles several times a day. Take over the counter acetaminophen (Tylenol) according to directions as needed for pain or fever. You may also use Chloraseptic spray or Cepacol lonzenges according to directions which contain a numbing medication and can provide some temporary relief from your sore throat. Return here or follow up with your primary care provider in 5-7 days if symptoms persist. Seek immediate medical attention in the emergency room if you have fever greater than 100.5 F despite taking acetaminophen or ibuprofen, are unable to swallow or develop drooling, are unable to open your mouth fully, are unable to eat or drink, have pain that is not relieved with over the counter pain medication, have any difficulty breathing, or any worsening of symptoms. - Billing Disposition and Condition Condition: STABLE Disposition: Home
== END 2019-02-23 21:22 | disposition home or self-care (01) ==
LOC: UCEAST 19:59
DX: J02.9 Acute pharyngitis, unspecified (principal); Z87.891 Personal history of nicotine dependence
CPT/HCPCS: 87651; 99211; G0463

== ENCOUNTER 2019-12-02 17:37 | Emergency (ER) | payer BC, OTHER ==
[2019-12-02 17:56] VITALS: BP 108/74
--- NOTE | 2019-12-02 18:36 | UC ---
FLU HPI - HPI Summary HPI Summary: patient has had hoarse voice, fatigue, mild ST and mild cough for 6 days. partner was dx with influenza last week she has taken OTC cold and sinus meds with some relief - History of Current Complaint Chief Complaint: UCRespiratory Stated Complaint: NASAL AND CHEST CONGESTION Time Seen by Provider: 12/02/19 17:53 Hx Obtained From: Patient Hx Last Menstrual Period: 3 weeks ago Onset/Duration: Sudden Onset Severity Currently: None Severity Initially: Mild Pain Intensity: 0 Associated Signs & Symptoms: Positive: Cough, Sore Throat, Nasal Congestion. Negative: Headache, Vomiting, Diarrhea Related Hx: Possible Flu/Infectious Exposure - Allergy/Home Medications Allergies/Adverse Reactions: Allergies Allergy/AdvReac Type Severity Reaction Status Date / Time No Known Allergies Allergy Verified 12/02/19 17:56 Home Medications: Home Medications Ibuprofen TAB* [Motrin TAB* 600 MG] 600 mg PO Q6H PRN tab 06/11/18 [Rx Confirmed 12/02/19] Acetaminophen TAB* [Tylenol TAB*] 500 mg PO Q4H PRN 02/23/19 [History Confirmed 12/02/19] D-Methorphan/PE/Acetaminophen [Tylenol Cold Max Day Caplet] 1 tab PO BID [History Confirmed 12/02/19] PMH/Surg Hx/FS Hx/Imm Hx Previously Healthy: Yes - Surgical History Surgical History: Yes Surgery Procedure, Year, and Place: lt hip repair - Family History Known Family History: Positive: Hypertension - Social History Occupation: Employed Full-time Lives: With Family Alcohol Use: Occasionally Substance Use Type: None Smoking Status (MU): Former Smoker Type: Cigarettes Amount Used/How Often: 1 PPD X 5 YEARS Have You Smoked in the Last Year: No When Did the Patient Quit Smoking/Using Tobacco: 2011 - Immunization History Most Recent Influenza Vaccination: 06/11/18 Review of Systems All Other Systems Reviewed And Are Negative: Yes Constitutional: Positive: Fatigue Skin: Positive: Negative. Negative: Rash ENT: Positive: Sore Throat, Sinus Congestion. Negative: Ear Ache Respiratory: Positive: Cough. Negative: Shortness Of Breath Gastrointestinal: Positive: Negative Musculoskeletal: Positive: Negative. Negative: Arthralgia Neurological/Mental Status: Positive: Negative. Negative: Headache Psychological: Positive: Negative Is Patient Immunocompromised?: No Physical Exam Triage Information Reviewed: Yes Appearance: Well-Appearing, No Pain Distress, Well-Nourished Vital Signs: Initial Vital Signs Temp 98.8 F 12/02/19 17:53 Pulse 81 12/02/19 17:53 Resp 16 12/02/19 17:53 BP 108/74 12/02/19 17:53 Pulse Ox 99 12/02/19 17:53 Vital Signs Reviewed: Yes Eye Exam: Normal Eyes: Positive: Conjunctiva Clear ENT: Positive: Pharynx normal, Nasal congestion, TMs normal, Hoarse voice. Negative: Nasal drainage Respiratory Exam: Normal Respiratory: Positive: Lungs clear, Other: - no cough on exam Cardiovascular Exam: Normal Cardiovascular: Positive: RRR Neurological Exam: Normal Psychological Exam: Normal Skin Exam: Normal Skin: Negative: Rashes Flu Course/Dx - Differential Dx/Diagnosis Differential Diagnosis/HQI/PQRI: Bronchitis, Influenza, Upper Respiratory Infection Provider Diagnosis: Upper respiratory infection Discharge ED - Sign-Out/Discharge Documenting (check all that apply): Patient Departure All imaging exams completed and their final reports reviewed: No Studies - Discharge Plan Condition: Good Disposition: HOME Patient Education Materials: Upper Respiratory Infection (ED) Referrals: Yashira Yeung MD [Primary Care Provider] - 3 Days (if symptoms no better ) Additional Instructions: drink plenty of fluids and rest use over the counter cold medication as directed - Billing Disposition and Condition Condition: GOOD Disposition: Home
[2019-12-02 18:49] LABS: Influenza A Molecular Negative (Negative); Influenza B Molecular Negative (Negative)
== END 2019-12-02 19:07 | disposition home or self-care (01) ==
LOC: UCEAST 17:37
DX: J06.9 Acute upper respiratory infection, unspecified (principal); Z87.891 Personal history of nicotine dependence
CPT/HCPCS: 99211; G0463